=== PATIENT | female | born 1950 | race Caucasian/White ===

== ENCOUNTER 2018-01-23 06:58 | Day surgery (SDC) | payer MEDICARE, BC ==
[2018-01-23] MEDS ORDERED: Propofol 200 MG/20 ML SDV ONE ×2 (07:17→09:29)
[2018-01-23] MEDS ORDERED: fentaNYL 100 MCG/2 ML SDV ONE (07:17)
[2018-01-23] MEDS ORDERED: Midazolam 1 MG/ML 2 ML SDV ONE (07:17)
[2018-01-23] MEDS ORDERED: Lactated Ringers 1,000 ML IV SCH (08:00)
--- NOTE | 2018-01-23 13:13 | OR ---
DATE OF PROCEDURE: 01/23/2018 PREOPERATIVE DIAGNOSIS: Colon cancer screening. POSTOPERATIVE DIAGNOSIS: Small rectal polyp. PROCEDURE PERFORMED: Colonoscopy to the cecum with biopsy resection of small rectal polyp. ANESTHESIA: IV anesthesia with monitored anesthesia care. INDICATION: This 67-year-old white female is referred for her first colonoscopy. I counseled her for the procedure including risks and alternatives, and she gave her informed consent to proceed. DESCRIPTION OF PROCEDURE: The patient was placed in the left lateral decubitus position. IV anesthesia was administered by the Anesthesia Service. Time-out was held. A rectal exam was performed, which was unremarkable. The flexible video Olympus colonoscope was introduced through her anus, up her rectum and out her colon, all way to the cecum. To accomplish this, we had to apply some abdominal compression. Once the cecum was reached, the scope was slowly withdrawn, examining the mucosa throughout. No mucosal abnormalities were noted until we reached the rectum. Here, a small polyp was seen, which was removed with the biopsy forceps. The scope was also retroflexed in the rectum with the distal rectum appearing unremarkable. The scope was straightened and removed. She tolerated the procedure well. Champ Simmons MD /[id number]
== END 2018-01-23 11:10 | disposition home or self-care (01) ==
LOC: JP.SDS 06:58
PROVIDERS: ATTEND Surgery
DX: Z12.11 Encounter for screening for malignant neoplasm of colon (principal); D12.8 Benign neoplasm of rectum; I10 Essential (primary) hypertension; E66.9 Obesity, unspecified; Z68.33 Body mass index [BMI] 33.0-33.9, adult; Z88.2 Allergy status to sulfonamides; Z88.5 Allergy status to narcotic agent; Z88.8 Allergy status to other drugs, medicaments and biological substances; Z91.040 Latex allergy status; Z79.82 Long term (current) use of aspirin; Z79.899 Other long term (current) drug therapy
CPT/HCPCS: 45380; 88305; 88341; 88342; 93005; J2250; J2704; J3010; J7120

== ENCOUNTER 2020-01-08 12:15 | Inpatient (IN) | payer MEDICARE, BC ==
--- NOTE | 2020-01-08 12:23 | EDM.PDOC ---
ED HPI GENERAL MEDICAL PROBLEM - General Chief Complaint: Lower Extremity Injury/Pain Stated Complaint: MEDICAL VIA [facility] Time Seen by Provider: 01/08/20 12:22 Source of Information: Reports: Patient History Limitations: Reports: No Limitations - History of Present Illness INITIAL COMMENTS - FREE TEXT/NARRATIVE: 69 years old female patient presented to the ER with a chief complaint of left lower extremity pain, redness and swelling for the last 4 days. Progressively getting worse. No history of trauma or injury. Denies any fever. Denies any new chest pain or shortness breath. She has not been able to walk or bear any weight in her legs. Denies any cough or fever. Denies any abdominal pain diarrhea or constipation. Denies any urinary symptom. Left Leg Pain Score (Numeric/FACES): 5 - Related Data Allergies Allergy/AdvReac Type Severity Reaction Status Date / Time amlodipine [From Norvasc] Allergy Cannot Verified 01/08/20 12:23 Remember atenolol Allergy Cannot Verified 01/08/20 12:23 Remember Beta-Blockers Allergy Cannot Verified 01/08/20 12:23 (Beta-Adrenergic Bloc Remember candesartan [From Atacand] Allergy Cannot Verified 01/08/20 12:23 Remember clonidine [From Catapres] Allergy Cannot Verified 01/08/20 12:23 Remember codeine Allergy Cannot Verified 01/08/20 12:23 Remember enalapril Allergy Cannot Verified 01/08/20 12:23 Remember indapamide [From Lozol] Allergy Cannot Verified 01/08/20 12:23 Remember latex Allergy Cannot Verified 01/08/20 12:23 Remember lisinopril [From Prinivil] Allergy Cannot Verified 01/08/20 12:23 Remember metoprolol [From Toprol XL] Allergy Cannot Verified 01/08/20 12:23 Remember sulfadimethoxine Allergy Cannot Verified 01/08/20 12:23 Remember morphine AdvReac Vomiting Verified 01/08/20 12:24 Home Meds: Home Meds Losartan [Cozaar] 25 mg PO DAILY 01/22/18 [History] Potassium Chloride 20 meq PO DAILY 01/22/18 [History] aMILoride [Midamor] 5 mg PO DAILY 01/22/18 [History] hydroCHLOROthiazide [Hydrochlorothiazide] 25 mg PO DAILY 01/22/18 [History] Dabigatran Etexilate Mesylate [Pradaxa] 150 mg PO BID 01/08/20 [History] Magnesium Chloride [Slow-Mag] 1 tab PO ASDIRECTED 01/08/20 [History] Spironolactone [Aldactone] 25 mg PO DAILY 01/08/20 [History] dilTIAZem HCL [Dilt-XR] 120 mg PO DAILY 01/08/20 [History] Past Medical History HEENT History: Reports: Allergic Rhinitis, Hard of Hearing, Impaired Vision, Sinusitis Cardiovascular History: Reports: Hypertension Gastrointestinal History: Reports: Cholelithiasis, GERD Genitourinary History: Reports: None [employer]ENT History: Reports: Dysfunctional Uterine Bleeding, , Spontaneous Musculoskeletal History: Reports: Back Pain, Chronic, Fracture, Fibromyalgia, Osteoarthritis Endocrine/Metabolic History: Reports: Obesity/BMI 30+ Dermatologic History: Reports: Psoriasis - Infectious Disease History Infectious Disease History: Reports: Chicken Pox, Measles, Shingles, Other (See Below) Other Infectious Disease History: Erlichiosis - Past Surgical History HEENT Surgical History: Reports: None Cardiovascular Surgical History: Reports: None GI Surgical History: Reports: Cholecystectomy, EGD, Hernia, Abdominal Female Surgical History: Reports: D&C Endocrine Surgical History: Reports: None Musculoskeletal Surgical History: Reports: Other (See Below) Other Musculoskeletal Surgeries/Procedures:: Marcin bunionectomy Dermatological Surgical History: Reports: Skin Biopsy Social & Family History - Caffeine Use Caffeine Use: Reports: Soda Review of Systems - Review of Systems Review Of Systems: Comprehensive ROS is negative, except as noted in HPI. ED EXAM, GENERAL - Physical Exam Exam: See Below Exam Limited By: No Limitations General Appearance: Alert, WD/WN, No Apparent Distress Nose: Normal Inspection, Normal Mucosa, No Blood Head: Atraumatic, Normocephalic Neck: Normal Inspection, Supple, Non-Tender, Full Range of Motion Respiratory/Chest: No Respiratory Distress, Lungs Clear, Normal Breath Sounds, No Accessory Muscle Use, Chest Non-Tender Cardiovascular: Normal Peripheral Pulses, Regular Rate, Rhythm, No Edema, No Gallop, No JVD, No Murmur, No Rub Extremities: Bettye's Sign, Leg Pain, Increased Warmth, Redness, Other (Swelling of the left lower extremity.) Neurological: Alert, Oriented, CN II-XII Intact, Normal Cognition, Normal Gait, Normal Reflexes, No Motor/Sensory Deficits Course - Vital Signs Last Recorded V/S: Last Vital Signs Temp 36.8 C 01/08/20 16:58 Pulse 68 01/08/20 16:58 Resp 18 01/08/20 16:58 BP 165/69 H 01/08/20 16:58 Pulse Ox 97 01/08/20 16:58 - Orders/Labs/Meds Orders: Medication Orders Acetaminophen (Tylenol) 650 mg PO Q4H PRN PRN Reason: Pain (Mild 1-3)/fever Dabigatran (Pradaxa) 150 mg PO BID [facility] Diltiazem HCl (Cardizem Cd) 120 mg PO DAILY [facility] Hydrochlorothiazide (Hydrochlorothiazide) 25 mg PO DAILY [facility] Hydromorphone HCl (Dilaudid) 0.5 mg IVPUSH Q2H PRN PRN Reason: Pain (severe 7-10) Sodium Chloride (Normal Saline) 1,000 mls @ 100 mls/hr IV ASDIRECTED [facility] Potassium Chloride 20 meq/Lidocaine HCl 2 ml/ Sodium Chloride 112 mls @ 56 mls/hr IV ONETIME ONE Stop: 01/08/20 20:59 Last Admin: 01/08/20 18:00 Dose: 56 mls/hr Documented by: LUCRECIA Magnesium Sulfate 2 gm/ Premix 50 mls @ 25 mls/hr IV Q6H [facility] Stop: 01/09/20 07:59 Last Admin: 01/08/20 17:33 Dose: 25 mls/hr Documented by: LUCRECIA Ceftriaxone Sodium 1 gm/ (Sodium Chloride) 50 mls @ 100 mls/hr IV Q12H [facility] Vancomycin HCl 1.25 gm/ Sodium (Chloride) 250 mls @ 150 mls/hr IV Q12H [facility] Last Admin: 01/08/20 18:00 Dose: 150 mls/hr Documented by: LUCRECIA Lactobacillus Rhamnosus (Culturelle) 1 cap PO BID [facility] Lorazepam (Ativan) 0.5 mg IVPUSH Q4H PRN PRN Reason: Nausea/Vomiting Losartan Potassium (Cozaar) 25 mg PO DAILY [facility] Magnesium Hydroxide (Milk Of Magnesia) 30 ml PO Q12H PRN PRN Reason: Constipation Melatonin (Melatonin) 9 mg PO BEDTIME PRN PRN Reason: Sleep Non-Formulary Medication (Amiloride [Midamor]) 5 mg PO DAILY [facility] Ondansetron HCl (Zofran) 4 mg IV Q6H PRN PRN Reason: Nausea/Vomiting Ondansetron HCl (Zofran Odt) 4 mg PO Q6H PRN PRN Reason: Nausea able to take PO Oxycodone HCl (Oxycodone) 5 - 10 mg PO Q4H PRN PRN Reason: Pain Senna/Docusate Sodium (Senna Plus) 1 tab PO BID PRN PRN Reason: Constipation Spironolactone (Aldactone) 25 mg PO DAILY [facility] Labs: Laboratory Tests 01/08/20 01/08/20 01/08/20 Range/Units 12:41 12:41 12:41 WBC 15.4 H (4.5-11.0) K/uL RBC 4.54 (3.30-5.50) M/uL Hgb 15.0 (12.0-15.0) g/dL Hct 43.9 (36.0-48.0) % MCV 97 (80-98) fL MCH 33 H (27-31) pg MCHC 34 (32-36) % Plt Count 173 (150-400) K/uL Neut % (Auto) 85 H (36-66) % Lymph % (Auto) 4 L (24-44) % [place] % (Auto) 11 H (2-6) % Eos % (Auto) 0 L (2-4) % Baso % (Auto) 0 (0-1) % Sodium 127 L (140-148) mmol/L Potassium 2.6 L* (3.6-5.2) mmol/L Chloride 88 L (100-108) mmol/L Carbon Dioxide 34 H (21-32) mmol/L Anion Gap 7.6 (5.0-14.0) mmol/L BUN 15 (7-18) mg/dL Creatinine 0.9 (0.6-1.0) mg/dL Est Cr Clr Drug Dosing 53.83 mL/min Estimated GFR (MDRD) > 60 (>60) Glucose 113 H (74-106) mg/dL Lactic Acid 1.8 (0.4-2.0) mmol/L Calcium 9.0 (8.5-10.1) mg/dL Magnesium (1.8-2.4) mg/dL Total Bilirubin 3.2 H (0.2-1.0) mg/dL AST 44 H (15-37) U/L ALT 29 (12-78) U/L Alkaline Phosphatase 65 (46-116) U/L C-Reactive Protein 22.13 H (0.0-0.3) mg/dL Total Protein 7.4 (6.4-8.2) g/dL Albumin 3.0 L (3.4-5.0) g/dL Globulin 4.4 H (2.3-3.5) g/dL Albumin/Globulin Ratio 0.7 L (1.2-2.2) 01/08/20 Range/Units 13:36 WBC (4.5-11.0) K/uL RBC (3.30-5.50) M/uL Hgb (12.0-15.0) g/dL Hct (36.0-48.0) % MCV (80-98) fL MCH (27-31) pg MCHC (32-36) % Plt Count (150-400) K/uL Neut % (Auto) (36-66) % Lymph % (Auto) (24-44) % [place] % (Auto) (2-6) % Eos % (Auto) (2-4) % Baso % (Auto) (0-1) % Sodium (140-148) mmol/L Potassium (3.6-5.2) mmol/L Chloride (100-108) mmol/L Carbon Dioxide (21-32) mmol/L Anion Gap (5.0-14.0) mmol/L BUN (7-18) mg/dL Creatinine (0.6-1.0) mg/dL Est Cr Clr Drug Dosing mL/min Estimated GFR (MDRD) (>60) Glucose (74-106) mg/dL Lactic Acid (0.4-2.0) mmol/L Calcium (8.5-10.1) mg/dL Magnesium 1.5 L (1.8-2.4) mg/dL Total Bilirubin (0.2-1.0) mg/dL AST (15-37) U/L ALT (12-78) U/L Alkaline Phosphatase (46-116) U/L C-Reactive Protein (0.0-0.3) mg/dL Total Protein (6.4-8.2) g/dL Albumin (3.4-5.0) g/dL Globulin (2.3-3.5) g/dL Albumin/Globulin Ratio (1.2-2.2) Meds: Medications Generic Name Dose Route Start Last Admin Trade Name Freq PRN Reason Stop Dose Admin Acetaminophen 650 mg 01/08/20 16:28 Tylenol PO Q4H PRN Pain (Mild 1-3)/fever Dabigatran 150 mg 01/08/20 21:00 Pradaxa PO BID [facility] Diltiazem HCl 120 mg 01/09/20 09:00 Cardizem Cd PO DAILY [facility] Hydrochlorothiazide 25 mg 01/09/20 09:00 Hydrochlorothiazide PO DAILY [facility] Hydromorphone HCl 0.5 mg 01/08/20 16:28 Dilaudid IVPUSH Q2H PRN Pain (severe 7-10) Sodium Chloride 1,000 mls @ 100 mls/hr 01/08/20 16:28 Normal Saline IV ASDIRECTED [facility] Potassium Chloride 20 meq/ 112 mls @ 56 mls/hr 01/08/20 19:00 01/08/20 18:00 Lidocaine HCl 2 ml/ Sodium IV 01/08/20 20:59 56 mls/hr Chloride ONETIME ONE Administration Magnesium Sulfate 2 gm/ Premix 50 mls @ 25 mls/hr 01/08/20 18:00 01/08/20 17:33 IV 01/09/20 07:59 25 mls/hr Q6H [facility] Administration Ceftriaxone Sodium 1 gm/ 50 mls @ 100 mls/hr 01/09/20 02:00 Sodium Chloride IV Q12H [facility] Vancomycin HCl 1.25 gm/ Sodium 250 mls @ 150 mls/hr 01/08/20 18:00 01/08/20 18:00 Chloride IV 150 mls/hr Q12H [facility] Administration Lactobacillus Rhamnosus 1 cap 01/08/20 21:00 Culturelle PO BID [facility] Lorazepam 0.5 mg 01/08/20 16:28 Ativan IVPUSH Q4H PRN Nausea/Vomiting Losartan Potassium 25 mg 01/09/20 09:00 Cozaar PO DAILY [facility] Magnesium Hydroxide 30 ml 01/08/20 16:28 Milk Of Magnesia PO Q12H PRN Constipation Melatonin 9 mg 01/08/20 16:28 Melatonin PO BEDTIME PRN Sleep Non-Formulary Medication 5 mg 01/09/20 09:00 Amiloride [Midamor] PO DAILY [facility] Ondansetron HCl 4 mg 01/08/20 16:28 Zofran IV Q6H PRN Nausea/Vomiting Ondansetron HCl 4 mg 01/08/20 16:28 Zofran Odt PO Q6H PRN Nausea able to take PO Oxycodone HCl 5 - 10 mg 01/08/20 16:28 Oxycodone PO Q4H PRN Pain Senna/Docusate Sodium 1 tab 01/08/20 16:28 Senna Plus PO BID PRN Constipation Spironolactone 25 mg 01/09/20 09:00 Aldactone PO DAILY [facility] Discontinued Medications Generic Name Dose Route Start Last Admin Trade Name Freq PRN Reason Stop Dose Admin Ceftriaxone Sodium 1 gm/ 50 mls @ 100 mls/hr 01/08/20 13:30 01/08/20 13:53 Sodium Chloride IV 01/08/20 13:59 100 mls/hr ONETIME ONE Administration Potassium Chloride 20 meq/ 112 mls @ 56 mls/hr 01/08/20 14:30 01/08/20 14:46 Lidocaine HCl 2 ml/ Sodium IV 01/08/20 16:29 56 mls/hr Chloride ONETIME ONE Administration Potassium Chloride 40 meq 01/08/20 17:45 01/08/20 17:33 Klor-Con M20 PO 01/08/20 17:46 40 meq ONETIME ONE Administration - Radiology Interpretation Free Text/Narrative:: Patient was seen and examined shortly after arrival. Stable. Lab and imaging reviewed. Ultrasound negative for DVT. Started on Rocephin for cellulitis. Potassium 2.6. Given 10 mEq potassium chloride. Case was discussed with hospitalist commercial drone pilot Dr. Kent and he accepted admission for further management. Patient agrees with the plan. Stable for admission. mag is pending Departure - Departure Time of Disposition: 13:31 Disposition: Admitted As Inpatient 67 Condition: Fair Clinical Impression: Cellulitis, Hypokalemia - Discharge Information Sepsis Event Note (ED) - Focused Exam Vital Signs: Vital Signs Temp Pulse Resp BP Pulse Ox 01/08/20 15:44 75 162/88 H 93 L 01/08/20 14:45 65 16 159/74 H 94 L 01/08/20 12:19 36.8 C 81 13 182/76 H 96 01/08/20 12:16 36.8 C 81 13 182/76 H 96
[2020-01-08] MEDS ORDERED: cefTRIAXone 1 GM in Sodium Chloride 0.9% 50 ML IV ONE (13:30)
--- NOTE | 2020-01-08 14:05 | US ---
VL Duplex Lwr Ext Veins Ltd Lt INDICATION: pain, and swelling FINDINGS: Ultrasound examination of the lower extremity using Doppler and compressive technique demonstrates that the common femoral, femoral, and popliteal veins are patent, and negative for thrombus. The calf veins were less than well visualized due to tissue edema. Comparison was limited due to patient pain IMPRESSION: No definite evidence of DVT. Calf vein evaluation is limited due to patient pain and soft tissue edema
[2020-01-08] MEDS ORDERED: Potassium Chloride 20 MEQ, Lidocaine 1% 2 ML in Sodium Chloride 0.9% 100 ML IV ONE ×2 (14:30→19:00)
--- NOTE | 2020-01-08 16:03 | PCM.HP.2 ---
H&P History of Present Illness - General Date of Service: 01/08/20 Admit Problem/Dx: Admission Diagnosis/Problem Admission Diagnosis/Problem Cellulitis of left lower extremity Source of Information: Patient, Family, Provider History Limitations: Reports: No Limitations - History of Present Illness Initial Comments - Free Text/Narative: CC: It hurt too bad to stand on my leg HPI: Mercy presented to the emergency room today with progressive redness, pain and swelling of her left lower extremity. Symptoms have progressed over the past several days. She describes at rest moderate achy pain from the knee distally including her foot. The pain does not radiate. The pain does wax and wane but anytime she tries to stand on the left foot/leg she has severe sharp shooting pains from her foot all the way up to the knee. She has not taken anything to make the pain feel better but rest does help the pain some. Pain has steadily been getting worse over the past several days. She has also noticed increased swelling especially over the past 2 days along with redness an d warmth that have steadily progressed over the past 2 days as well. She is not aware of any injury to her leg but does have several scabbed over lesions. She has no history of cellulitis of either leg. She has not had fevers or chills. She has had significant weakness as well as some episodes of shaking which are very short-lived. She has been too weak to get out of bed. Appetite has been v sara poor and she has had very little to eat or drink in the last 4 or 5 days. She has no energy. She does not feel short of breath and has not had a cough. No abdominal pain or change in bowel or bladder habits. No travel or sick contacts. Work-up in the emergency room raised concern for cellulitis involving the foot and entire left leg below the knee. She has mild leukocytosis but no fever. She also has hyponatremia, hypokalemia and mild hypomagnesemia. She is too weak to bear any weight. With the fairly rapid progression of symptoms and multiple electrolyte abnormalities she is going to be admitted for antibiotics and electrolyte replacement. Left Leg Pain Score (Numeric/FACES): 5 - Related Data Allergies/Adverse Reactions: Allergies Allergy/AdvReac Type Severity Reaction Status Date / Time amlodipine [From [facility]] Allergy Cannot Verified 01/08/20 12:23 Remember atenolol Allergy Cannot Verified 01/08/20 12:23 Remember Beta-Blockers Allergy Cannot Verified 01/08/20 12:23 (Beta-Adrenergic Bloc Remember candesartan [From [facility]] Allergy Cannot Verified 01/08/20 12:23 Remember clonidine [From [facility]ap[facility]] Allergy Cannot Verified 01/08/20 12:23 Remember codeine Allergy Cannot Verified 01/08/20 12:23 Remember enalapril Allergy Cannot Verified 01/08/20 12:23 Remember indapamide [From Lozol] Allergy Cannot Verified 01/08/20 12:23 Remember latex Allergy Cannot Verified 01/08/20 12:23 Remember lisinopril [From Prinivil] Allergy Cannot Verified 01/08/20 12:23 Remember metoprolol [From Toprol XL] Allergy Cannot Verified 01/08/20 12:23 Remember sulfadimethoxine Allergy Cannot Verified 01/08/20 12:23 Remember morphine AdvReac Vomiting Verified 01/08/20 12:24 Home Medications: Home Meds Losartan [Cozaar] 25 mg PO DAILY 01/22/18 [History] Potassium Chloride 20 meq PO DAILY 01/22/18 [History] aMILoride [Midamor] 5 mg PO DAILY 01/22/18 [History] hydroCHLOROthiazide [Hydrochlorothiazide] 25 mg PO DAILY 01/22/18 [History] Dabigatran Etexilate Mesylate [Pradaxa] 150 mg PO BID 01/08/20 [History] Magnesium Chloride [Slow-Mag] 1 tab PO ASDIRECTED 01/08/20 [History] Spironolactone [Aldactone] 25 mg PO DAILY 01/08/20 [History] dilTIAZem HCL [Dilt-XR] 120 mg PO DAILY 01/08/20 [History] Past Medical History HEENT History: Reports: Allergic Rhinitis, Hard of Hearing, Impaired Vision, Sinusitis Cardiovascular History: Reports: Hypertension Gastrointestinal History: Reports: Cholelithiasis, GERD Genitourinary History: Reports: None 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: Dysfunctional Uterine Bleeding, , Spontaneous Musculoskeletal History: Reports: Back Pain, Chronic, Fracture, Fibromyalgia, Osteoarthritis Endocrine/Metabolic History: Reports: Obesity/BMI 30+ Dermatologic History: Reports: Psoriasis - Infectious Disease History Infectious Disease History: Reports: Chicken Pox, Measles, Shingles, Other (See Below) Other Infectious Disease History: Erlichiosis - Past Surgical History HEENT Surgical History: Reports: None Cardiovascular Surgical History: Reports: None GI Surgical History: Reports: Cholecystectomy, EGD, Hernia, Abdominal Female Surgical History: Reports: D&C Endocrine Surgical History: Reports: None Musculoskeletal Surgical History: Reports: Other (See Below) Other Musculoskeletal Surgeries/Procedures:: Marcin bunionectomy Dermatological Surgical History: Reports: Skin Biopsy Social & Family History - Family History Cardiac: Denies: CAD - Tobacco Use Smoking Status *Q: Never Smoker - Caffeine Use Caffeine Use: Reports: Soda - Alcohol Use Days Per Week of Alcohol Use: 4 Number of Drinks Per Day: 2 Total Drinks Per Week: 8 - Recreational Drug Use Recreational Drug Use: No H&P Review of Systems - Review of Systems: Review Of Systems: See Below Free Text/Narrative: A complete 12 point review of systems was obtained. Pertinent positives and negatives are noted in the history of present illness. All other systems were reviewed and were negative except as noted. Exam - Exam Exam: See Below - Vital Signs Vital Signs: Last Vital Signs Temp 36.8 C 01/08/20 12:19 Pulse 75 01/08/20 15:44 Resp 16 01/08/20 14:45 BP 162/88 H 01/08/20 15:44 Pulse Ox 93 L 01/08/20 15:44 Weight: 82.554 kg - Exam Quality Assessment: No: Supplemental Oxygen General: Alert, Oriented, Cooperative. No: Mild Distress HEENT: Conjunctiva Clear. No: Mucosa Moist & [place] (Dry), Scleral Icterus Neck: Supple, Trachea Midline Lungs: Clear to Auscultation, Normal Respiratory Effort Cardiovascular: Regular Rate, Regular Rhythm GI/Abdominal Exam: Normal Bowel Sounds, Soft, Non-Tender, No Distention Back Exam: Normal Inspection, Full Range of Motion Extremities: Pedal Edema (Left leg from the knee distally including the foot), Increased Warmth (Left leg from the knee distally including the foot). No: Joint Swelling Skin: Warm, Dry, Rash (Erythema involving the lateral, anterior and medial aspect of the lower leg from the knee to the ankle and this extends onto the foot), Wound (2 very small scabbed lesions left anterior lower leg and left lateral lower leg. She has some healing scabbed lesions at the base of the foot near the anterior lower leg that she says are from wearing sandals. No drainage) Neuro Extensive - Mental Status: Alert, Oriented x3, Nl Response to Commands Neuro Extensive - Motor, Sensory, Reflexes: No: Dysarthria, Abnormal Motor Psychiatric: Alert, Normal Affect - Patient Data Lab Results Last 24 hrs: Laboratory Results - last 24 hr 01/08/20 01/08/20 01/08/20 Range/Units 12:41 12:41 12:41 WBC 15.4 H (4.5-11.0) K/uL RBC 4.54 (3.30-5.50) M/uL Hgb 15.0 (12.0-15.0) g/dL Hct 43.9 (36.0-48.0) % MCV 97 (80-98) fL MCH 33 H (27-31) pg MCHC 34 (32-36) % Plt Count 173 (150-400) K/uL Neut % (Auto) 85 H (36-66) % Lymph % (Auto) 4 L (24-44) % Green % (Auto) 11 H (2-6) % Eos % (Auto) 0 L (2-4) % Baso % (Auto) 0 (0-1) % Sodium 127 L (140-148) mmol/L Potassium 2.6 L* (3.6-5.2) mmol/L Chloride 88 L (100-108) mmol/L Carbon Dioxide 34 H (21-32) mmol/L Anion Gap 7.6 (5.0-14.0) mmol/L BUN 15 (7-18) mg/dL Creatinine 0.9 (0.6-1.0) mg/dL Est Cr Clr Drug Dosing 53.83 mL/min Estimated GFR (MDRD) > 60 (>60) Glucose 113 H (74-106) mg/dL Lactic Acid 1.8 (0.4-2.0) mmol/L Calcium 9.0 (8.5-10.1) mg/dL Magnesium (1.8-2.4) mg/dL Total Bilirubin 3.2 H (0.2-1.0) mg/dL AST 44 H (15-37) U/L ALT 29 (12-78) U/L Alkaline Phosphatase 65 (46-116) U/L C-Reactive Protein 22.13 H (0.0-0.3) mg/dL Total Protein 7.4 (6.4-8.2) g/dL Albumin 3.0 L (3.4-5.0) g/dL Globulin 4.4 H (2.3-3.5) g/dL Albumin/Globulin Ratio 0.7 L (1.2-2.2) 01/08/20 Range/Units 13:36 WBC (4.5-11.0) K/uL RBC (3.30-5.50) M/uL Hgb (12.0-15.0) g/dL Hct (36.0-48.0) % MCV (80-98) fL MCH (27-31) pg MCHC (32-36) % Plt Count (150-400) K/uL Neut % (Auto) (36-66) % Lymph % (Auto) (24-44) % Green % (Auto) (2-6) % Eos % (Auto) (2-4) % Baso % (Auto) (0-1) % Sodium (140-148) mmol/L Potassium (3.6-5.2) mmol/L Chloride (100-108) mmol/L Carbon Dioxide (21-32) mmol/L Anion Gap (5.0-14.0) mmol/L BUN (7-18) mg/dL Creatinine (0.6-1.0) mg/dL Est Cr Clr Drug Dosing mL/min Estimated GFR (MDRD) (>60) Glucose (74-106) mg/dL Lactic Acid (0.4-2.0) mmol/L Calcium (8.5-10.1) mg/dL Magnesium 1.5 L (1.8-2.4) mg/dL Total Bilirubin (0.2-1.0) mg/dL AST (15-37) U/L ALT (12-78) U/L Alkaline Phosphatase (46-116) U/L C-Reactive Protein (0.0-0.3) mg/dL Total Protein (6.4-8.2) g/dL Albumin (3.4-5.0) g/dL Globulin (2.3-3.5) g/dL Albumin/Globulin Ratio (1.2-2.2) Result Diagrams: 01/08/20 12:41 01/08/20 12:41 Imaging Impressions Last 24 hrs: Lower extremity venous ultrasound of the left leg-I did review these images personally-no evidence for deep vein thrombosis. There is significant soft tissue swelling of the left lower leg. Sepsis Event Note - Evaluation Sepsis Screening Result: No Definite Risk - Focused Exam Vital Signs: Vital Signs Temp Pulse Resp BP Pulse Ox 01/08/20 15:44 75 162/88 H 93 L 01/08/20 14:45 65 16 159/74 H 94 L 01/08/20 12:19 36.8 C 81 13 182/76 H 96 01/08/20 12:16 36.8 C 81 13 182/76 H 96 *Q Meaningful Use (ADM) - VTE Risk Assess *Q Each Risk Factor Represents 1 Point: Obesity ( BMI > 25 kg/m2) Total Score 1 Point Risk Factors: 1 Each Risk Factor Represents 2 Points: Age 60 - 74 Years Total Score 2 Point Risk Factors: 2 Each Risk Factor Represents 3 Points: None Total Score 3 Point Risk Factors: 0 Each Risk Factor Represents 5 Points: None Total Score 5 Point Risk Factors: 0 Venous Thromboembolism Risk Factor Score *Q: 3 - Problem List (1) Cellulitis of left lower extremity SNOMED Code(s): 069473843 ICD Code: L03.116 - CELLULITIS OF LEFT LOWER LIMB Status: Acute Current Visit: Yes (2) Hypokalemia SNOMED Code(s): 03337777 ICD Code: E87.6 - HYPOKALEMIA Status: Acute Current Visit: Yes (3) Hyponatremia SNOMED Code(s): 17906010 ICD Code: E87.1 - HYPO-OSMOLALITY AND HYPONATREMIA Status: Acute Current Visit: Yes (4) Hypomagnesemia SNOMED Code(s): 819645513 ICD Code: E83.42 - HYPOMAGNESEMIA Status: Acute Current Visit: Yes (5) Essential hypertension SNOMED Code(s): 93751906 ICD Code: I10 - ESSENTIAL (PRIMARY) HYPERTENSION Status: Chronic Current Visit: Yes Problem List Initiated/Reviewed/Updated: Yes Orders Last 24hrs: Active Orders 24 hr Category Date Time Status Patient Status Manage Transfer [TRANSFER] Routine ADT 01/08/20 15:54 Ordered Potassium Chloride 20 meq Med 01/08/20 14:30 Active Lidocaine 1% [Xylocaine 1%] 2 ml Sodium Chloride 0.9% [Normal Saline] 100 ml IV ONETIME Resuscitation Status Routine Resus Stat 01/08/20 15:56 Ordered Medication Orders Potassium Chloride 20 meq/Lidocaine HCl 2 ml/ Sodium Chloride 112 mls @ 56 mls/hr IV ONETIME ONE Stop: 01/08/20 16:29 Last Admin: 01/08/20 14:46 Dose: 56 mls/hr Documented by: KRISTA Assessment/Plan Comment:: ASSESSMENT AND PLAN - Cellulitis of the left lower extremity including foot-no strong evidence for se psis. Significant swelling and pain of the left lower leg making it extremely difficult to bear weight. She has significant weakness and could not get out of bed on her own. No strong evidence for sepsis. Cultures have been obtained and she did receive ceftriaxone in the emergency room. I suspect the portal of entry where the wounds on the lower leg. No evidence for abscess at this time. CRP is quite elevated at more than 22. -Antibiotic coverage with ceftriaxone and vancomycin -IV fluids -Symptomatic management of pain -Follow-up cultures -Physical therapy to help with weakness starting tomorrow Profound hypokalemia-potassium level was only 2.6. She did receive a small quantity of supplementation in the emergency room. I suspect this is related to losses from her medications as well as her recent decrease in her supplement along with not eating for several days. -20 mEq IV over 2 hours -40 mEq by mouth x1 -Recheck in the morning Hyponatremia-secondary to hypovolemia with poor intake recently. -IV fluids Hypomagnesemia-plan to supplement along with the potassium. Paroxysmal atrial fibrillation-currently in sinus rhythm. She is chronically anticoagulated. -Continue dabigatran Essential hypertension-blood pressure initially mildly elevated but acceptable at this time. Planning to continue her usual home medications. Maintenance issues - - DVT prophylaxis -dabigatran - GI prophylaxis -not indicated - Nutrition -regular - Hardy catheter -not indicated CODE STATUS -full code Admission justification -this patient will be admitted for inpatient services and is medically appropriate meeting medical necessity for inpatient admission as outlined in my documentation. I reasonably expect the patient will require inpatient services that span a period time over 2 midnights. I reasonably expect this patient to be discharged or transferred within 96 hours [facility]. Disposition -I would anticipate discharge home after the hospital stay Primary care physician -Dr. Mei Kent M.D. - Mortality Measure Prognosis:: Good
[2020-01-08] MEDS ORDERED: Ondansetron 4 MG/2 ML SDV IV PRN (16:28)
[2020-01-08] MEDS ORDERED: Melatonin 3 MG Tab PO PRN (16:28)
[2020-01-08] MEDS ORDERED: Ondansetron 4 MG Tab.DIS PO PRN (16:28)
[2020-01-08] MEDS ORDERED: oxyCODONE 5 MG Tab PO PRN (16:28)
[2020-01-08] MEDS ORDERED: Magnesium Hydroxide 400 MG/5 ML Susp 30 ML Cup PO PRN (16:28)
[2020-01-08] MEDS ORDERED: HYDROmorphone 1 MG/ML Syringe IVPUSH PRN (16:28)
[2020-01-08] MEDS ORDERED: LORazepam 2 MG/ML SDV IVPUSH PRN (16:28)
[2020-01-08] MEDS ORDERED: Acetaminophen 325 MG Tab PO PRN (16:28)
[2020-01-08] MEDS ORDERED: Sodium Chloride 0.9% 1,000 ML IV SCH (16:28)
[2020-01-08] MEDS: Magnesium Sulfate/Water 2 GM in Premix Bag 1 BAG IV SCH ×2 (17:33→23:47)
[2020-01-08] MEDS ORDERED: Potassium Chloride 20 MEQ Tab.ER PO ONE (17:45)
[2020-01-08] MEDS: Lactobacillus Rhamnosus GG (Probiotic) Cap PO SCH (20:41)
[2020-01-09] MEDS: cefTRIAXone 1 GM in Sodium Chloride 0.9% 50 ML IV SCH ×2 (01:54→13:22)
[2020-01-09] MEDS ORDERED: Potassium Chloride 20 MEQ in Premix Bag 1 BAG IV ONE (05:29)
[2020-01-09] MEDS: Magnesium Sulfate/Water 2 GM in Premix Bag 1 BAG IV SCH (05:37)
[2020-01-09] MEDS ORDERED: Potassium Chloride 100 ML ONE (05:42)
[2020-01-09] MEDS: Diltiazem 120 MG Cap.CD PO SCH (08:24)
[2020-01-09] MEDS: Lactobacillus Rhamnosus GG (Probiotic) Cap PO SCH ×2 (08:24→20:21)
[2020-01-09] MEDS: Hydrochlorothiazide 25 MG Tab PO SCH (08:24)
[2020-01-09] MEDS: Losartan 25 MG Tab PO SCH (08:24)
[2020-01-09] MEDS: Spironolactone 25 MG Tab PO SCH (08:24)
[2020-01-09] MEDS ORDERED: Potassium Chloride 20 MEQ Tab.ER PO ONE ×2 (09:00→18:40)
[2020-01-09] MEDS: aMILoride 5 MG Tab PO SCH (09:51)
--- NOTE | 2020-01-09 10:24 | PCM.PN ---
- General Info Date of Service: 01/09/20 Subjective Update: No acute events overnight. Pain is a little better today but still moderate to moderately severe. Pain is still worse when she tries to bear any weight but fairly comfortable at rest. Redness and swelling are slightly better today. White blood cell count has improved. No fevers overnight. Appetite has improved. Cultures are negative so far. Functional Status: Reports: Pain Controlled, Tolerating Diet - Review of Systems General: Denies: Fever Musculoskeletal: Reports: Leg Pain - Patient Data Vitals - Most Recent: Last Vital Signs Temp 36.6 C 01/09/20 08:00 Pulse 65 01/09/20 08:24 Resp 19 01/09/20 08:00 BP 173/74 H 01/09/20 08:24 Pulse Ox 97 01/09/20 08:00 Weight - Most Recent: 82.554 kg I&O - Last 24 Hours: Intake & Output 01/08/20 01/09/20 01/09/20 22:59 06:59 14:59 Intake Total 2269 Output Total 300 400 Balance -300 2269 -400 Lab Results Last 24 Hours: Laboratory Results - last 24 hr 01/08/20 01/08/20 01/08/20 Range/Units 12:41 12:41 12:41 WBC 15.4 H (4.5-11.0) K/uL RBC 4.54 (3.30-5.50) M/uL Hgb 15.0 (12.0-15.0) g/dL Hct 43.9 (36.0-48.0) % MCV 97 (80-98) fL MCH 33 H (27-31) pg MCHC 34 (32-36) % Plt Count 173 (150-400) K/uL Neut % (Auto) 85 H (36-66) % Lymph % (Auto) 4 L (24-44) % [place] % (Auto) 11 H (2-6) % Eos % (Auto) 0 L (2-4) % Baso % (Auto) 0 (0-1) % Sodium 127 L (140-148) mmol/L Potassium 2.6 L* (3.6-5.2) mmol/L Chloride 88 L (100-108) mmol/L Carbon Dioxide 34 H (21-32) mmol/L Anion Gap 7.6 (5.0-14.0) mmol/L BUN 15 (7-18) mg/dL Creatinine 0.9 (0.6-1.0) mg/dL Est Cr Clr Drug Dosing 53.83 mL/min Estimated GFR (MDRD) > 60 (>60) Glucose 113 H (74-106) mg/dL Lactic Acid 1.8 (0.4-2.0) mmol/L Calcium 9.0 (8.5-10.1) mg/dL Magnesium (1.8-2.4) mg/dL Total Bilirubin 3.2 H (0.2-1.0) mg/dL AST 44 H (15-37) U/L ALT 29 (12-78) U/L Alkaline Phosphatase 65 (46-116) U/L C-Reactive Protein 22.13 H (0.0-0.3) mg/dL Total Protein 7.4 (6.4-8.2) g/dL Albumin 3.0 L (3.4-5.0) g/dL Globulin 4.4 H (2.3-3.5) g/dL Albumin/Globulin Ratio 0.7 L (1.2-2.2) 01/08/20 01/09/20 01/09/20 Range/Units 13:36 05:02 05:02 WBC 13.0 H (4.5-11.0) K/uL RBC 3.97 (3.30-5.50) M/uL Hgb 13.2 (12.0-15.0) g/dL Hct 39.1 (36.0-48.0) % MCV 99 H (80-98) fL MCH 33 H (27-31) pg MCHC 34 (32-36) % Plt Count 180 (150-400) K/uL Neut % (Auto) (36-66) % Lymph % (Auto) (24-44) % [place] % (Auto) (2-6) % Eos % (Auto) (2-4) % Baso % (Auto) (0-1) % Sodium 128 L (140-148) mmol/L Potassium 2.9 L* (3.6-5.2) mmol/L Chloride 92 L (100-108) mmol/L Carbon Dioxide 30 (21-32) mmol/L Anion Gap 8.9 (5.0-14.0) mmol/L BUN 13 (7-18) mg/dL Creatinine 0.7 (0.6-1.0) mg/dL Est Cr Clr Drug Dosing 69.21 mL/min Estimated GFR (MDRD) > 60 (>60) Glucose 97 (74-106) mg/dL Lactic Acid (0.4-2.0) mmol/L Calcium 8.3 L (8.5-10.1) mg/dL Magnesium 1.5 L (1.8-2.4) mg/dL Total Bilirubin (0.2-1.0) mg/dL AST (15-37) U/L ALT (12-78) U/L Alkaline Phosphatase (46-116) U/L C-Reactive Protein (0.0-0.3) mg/dL Total Protein (6.4-8.2) g/dL Albumin (3.4-5.0) g/dL Globulin (2.3-3.5) g/dL Albumin/Globulin Ratio (1.2-2.2) Med Orders - Current: Current Medications Acetaminophen (Tylenol) 650 mg PO Q4H PRN PRN Reason: Pain (Mild 1-3)/fever Amiloride HCl (Midamor) 5 mg PO DAILY [facility] Last Admin: 01/09/20 09:51 Dose: 5 mg Documented by: Dabigatran (Pradaxa) 150 mg PO BID [facility] Last Admin: 01/09/20 08:23 Dose: 150 mg Documented by: Diltiazem HCl (Cardizem Cd) 120 mg PO DAILY [facility] Last Admin: 01/09/20 08:24 Dose: 120 mg Documented by: Hydrochlorothiazide (Hydrochlorothiazide) 25 mg PO DAILY [facility] Last Admin: 01/09/20 08:24 Dose: 25 mg Documented by: Hydromorphone HCl (Dilaudid) 0.5 mg IVPUSH Q2H PRN PRN Reason: Pain (severe 7-10) Sodium Chloride (Normal Saline) 1,000 mls @ 100 mls/hr IV ASDIRECTED [facility] Last Admin: 01/09/20 04:03 Dose: 100 mls/hr Documented by: Ceftriaxone Sodium 1 gm/ (Sodium Chloride) 50 mls @ 100 mls/hr IV Q12H [facility] Last Admin: 01/09/20 01:54 Dose: 100 mls/hr Documented by: Vancomycin HCl 1.25 gm/ Sodium (Chloride) 250 mls @ 150 mls/hr IV Q12H [facility] Last Admin: 01/09/20 05:37 Dose: 150 mls/hr Documented by: Lactobacillus Rhamnosus (Culturelle) 1 cap PO BID [facility] Last Admin: 01/09/20 08:24 Dose: 1 cap Documented by: Lorazepam (Ativan) 0.5 mg IVPUSH Q4H PRN PRN Reason: Nausea/Vomiting Losartan Potassium (Cozaar) 25 mg PO DAILY [facility] Last Admin: 01/09/20 08:24 Dose: 25 mg Documented by: Magnesium Hydroxide (Milk Of Magnesia) 30 ml PO Q12H PRN PRN Reason: Constipation Melatonin (Melatonin) 9 mg PO BEDTIME PRN PRN Reason: Sleep Ondansetron HCl (Zofran) 4 mg IV Q6H PRN PRN Reason: Nausea/Vomiting Ondansetron HCl (Zofran Odt) 4 mg PO Q6H PRN PRN Reason: Nausea able to take PO Oxycodone HCl (Oxycodone) 5 - 10 mg PO Q4H PRN PRN Reason: Pain Senna/Docusate Sodium (Senna Plus) 1 tab PO BID PRN PRN Reason: Constipation Spironolactone (Aldactone) 25 mg PO DAILY [facility] Last Admin: 01/09/20 08:24 Dose: 25 mg Documented by: Discontinued Medications Ceftriaxone Sodium 1 gm/ (Sodium Chloride) 50 mls @ 100 mls/hr IV ONETIME ONE Stop: 01/08/20 13:59 Last Admin: 01/08/20 13:53 Dose: 100 mls/hr Documented by: Potassium Chloride 20 meq/Lidocaine HCl 2 ml/ Sodium Chloride 112 mls @ 56 mls/hr IV ONETIME ONE Stop: 01/08/20 16:29 Last Admin: 01/08/20 14:46 Dose: 56 mls/hr Documented by: Potassium Chloride 20 meq/Lidocaine HCl 2 ml/ Sodium Chloride 112 mls @ 56 mls/hr IV ONETIME ONE Stop: 01/08/20 20:59 Last Admin: 01/08/20 18:00 Dose: 56 mls/hr Documented by: Magnesium Sulfate 2 gm/ Premix 50 mls @ 25 mls/hr IV Q6H [facility] Stop: 01/09/20 07:59 Last Admin: 01/09/20 05:37 Dose: 25 mls/hr Documented by: Potassium Chloride 20 meq/ (Premix) 100 mls @ 50 mls/hr IV ONETIME ONE Stop: 01/09/20 07:28 Last Admin: 01/09/20 05:49 Dose: 50 mls/hr Documented by: Potassium Chloride (Kcl 20 Meq In Water 100 Ml) Confirm Administered Dose 100 mls @ as directed .ROUTE .STK-MED ONE Stop: 01/09/20 05:43 Last Admin: 01/09/20 05:49 Dose: Not Given Documented by: Lidocaine HCl (Xylocaine-Mpf 1%) 2 ml INJECT ONETIME ONE Stop: 01/09/20 05:31 Last Admin: 01/09/20 05:49 Dose: 2 ml Documented by: Lidocaine HCl (Xylocaine-Mpf 1%) Confirm Administered Dose 5 ml .ROUTE .STK-MED ONE Stop: 01/09/20 05:43 Last Admin: 01/09/20 05:49 Dose: Not Given Documented by: Potassium Chloride (Klor-Con M20) 40 meq PO ONETIME ONE Stop: 01/08/20 17:46 Last Admin: 01/08/20 17:33 Dose: 40 meq Documented by: Potassium Chloride (Klor-Con M20) 40 meq PO ONETIME ONE Stop: 01/09/20 09:01 Last Admin: 01/09/20 09:50 Dose: 40 meq Documented by: - Exam Quality Assessment: No: Supplemental Oxygen General: Alert, Oriented, Cooperative, No Acute Distress Lungs: Normal Respiratory Effort Cardiovascular: Regular Rate, Regular Rhythm GI/Abdominal Exam: Soft, No Distention Extremities: Pedal Edema, Increased Warmth (left lower leg from knee to ankle) Skin: Warm, Dry, Rash (erythema from left knee to ankle, circumferential ) Psy/Mental Status: Alert, Normal Affect Sepsis Event Note - Evaluation Sepsis Screening Result: No Definite Risk - Focused Exam Vital Signs: Vital Signs Temp Pulse Pulse Resp BP BP Pulse Ox 01/09/20 08:24 65 173/74 H 01/09/20 08:00 36.6 C 61 19 173/74 H 97 01/09/20 04:00 37.0 C 60 16 161/78 H 94 L 01/08/20 23:49 36.7 C 67 12 163/70 H 97 - Problem List & Annotations (1) Cellulitis of left lower extremity SNOMED Code(s): 409812941 Code(s): L03.116 - CELLULITIS OF LEFT LOWER LIMB Status: Acute Current Visit: Yes (2) Hypokalemia SNOMED Code(s): 67742690 Code(s): E87.6 - HYPOKALEMIA Status: Acute Current Visit: Yes (3) Hyponatremia SNOMED Code(s): 02863065 Code(s): E87.1 - HYPO-OSMOLALITY AND HYPONATREMIA Status: Acute Current Visit: Yes (4) Hypomagnesemia SNOMED Code(s): 971429187 Code(s): E83.42 - HYPOMAGNESEMIA Status: Acute Current Visit: Yes (5) Essential hypertension SNOMED Code(s): 73046992 Code(s): I10 - ESSENTIAL (PRIMARY) HYPERTENSION Status: Chronic Current Visit: Yes - Problem List Review Problem List Initiated/Reviewed/Updated: Yes - My Orders Last 24 Hours: My Active Orders 01/08/20 15:56 Resuscitation Status Routine 01/08/20 16:28 Acetaminophen [TylenoL] 650 mg PO Q4H PRN Docusate Sodium/Sennosides [Senna Plus] 1 tab PO BID PRN HYDROmorphone [Dilaudid] 0.5 mg IVPUSH Q2H PRN LORazepam [Ativan] 0.5 mg IVPUSH Q4H PRN Magnesium Hydroxide [Milk of Magnesia] 30 ml PO Q12H PRN Melatonin 9 mg PO BEDTIME PRN Ondansetron [Zofran ODT] 4 mg PO Q6H PRN Ondansetron [Zofran] 4 mg IV Q6H PRN Sodium Chloride 0.9% [Normal Saline] 1,000 ml IV ASDIRECTED oxyCODONE 5 - 10 mg PO Q4H PRN 01/08/20 16:28 Patient Status [ADT] Routine Elevate Extremity [RC] QID Intake and Output [RC] QSHIFT Notify Provider Vital Signs [RC] ASDIRECTED Oxygen Therapy [RC] PRN Up With Assistance [RC] ASDIRECTED VTE/DVT Education [RC] Per Unit Routine Vital Signs [RC] Q4H 01/08/20 Dinner 2 Gram Sodium Diet [DIET] 01/08/20 18:00 Vancomycin 1.25 gm Sodium Chloride 0.9% [Normal Saline] 250 ml IV Q12H 01/08/20 21:00 Dabigatran [Pradaxa] 150 mg PO BID Lactobacillus Rhamnosus GG [Culturelle] 1 cap PO BID 01/09/20 02:00 cefTRIAXone [Rocephin] 1 gm Sodium Chloride 0.9% [Normal Saline] 50 ml IV Q12H 01/09/20 07:00 PT Evaluation and Treatment [CONS] Routine 01/09/20 09:00 Diltiazem [Cardizem CD] 120 mg PO DAILY Losartan [Cozaar] 25 mg PO DAILY Spironolactone [Aldactone] 25 mg PO DAILY aMILoride [Midamor] 5 mg PO DAILY hydroCHLOROthiazide 25 mg PO DAILY 01/09/20 10:22 Discontinue Telemetry Monitoring [Cardiac Monitoring Discontinue] [RC] Click to Edit 01/09/20 10:30 Sodium Chloride 0.9% [Normal Saline] 1,000 ml IV ASDIRECTED 01/09/20 15:00 POTASSIUM,K [CHEM] Routine 01/10/20 05:00 BASIC METABOLIC PANEL,BMP [CHEM] Timed CBC W/O DIFF,HEMOGRAM [HEME] Timed (1) - Plan Plan:: ASSESSMENT AND PLAN - Cellulitis of the left lower extremity including foot-clinically improving and white blood cell count is trending down. No significant fevers. Tolerating current antibiotics. Still having difficulty bearing weight because of the severity of the pain. -Antibiotic coverage with ceftriaxone and vancomycin -Continue gentle IV fluids -Symptomatic management of pain -Follow-up cultures -Physical therapy to help with weakness Profound hypokalemia-potassium level improving with supplementation but still quite low. -20 mEq given earlier this morning -40 mEq by mouth x1 -Recheck this afternoon and again in the morning Hyponatremia-improving with fluids -IV fluids as above Hypomagnesemia-supplemented overnight Paroxysmal atrial fibrillation-currently in sinus rhythm. She is chronically anticoagulated. -Continue dabigatran Essential hypertension-blood pressure initially mildly elevated but acceptable at this time. Planning to continue her usual home medications. Maintenance issues - - DVT prophylaxis -dabigatran - GI prophylaxis -not indicated - Nutrition -regular Disposition -I would anticipate discharge home after the hospital stay Primary care physician -Dr. Mei Kent M.D.
[2020-01-09] MEDS ORDERED: Sodium Chloride 0.9% 1,000 ML IV SCH (10:30)
[2020-01-10] MEDS: cefTRIAXone 1 GM in Sodium Chloride 0.9% 50 ML IV SCH ×2 (02:28→14:12)
[2020-01-10] MEDS: Spironolactone 25 MG Tab PO SCH (08:24)
[2020-01-10] MEDS: Diltiazem 120 MG Cap.CD PO SCH (08:24)
[2020-01-10] MEDS: Losartan 25 MG Tab PO SCH (08:25)
[2020-01-10] MEDS: Hydrochlorothiazide 25 MG Tab PO SCH (08:28)
[2020-01-10] MEDS: Lactobacillus Rhamnosus GG (Probiotic) Cap PO SCH ×2 (08:28→20:30)
[2020-01-10] MEDS: Potassium Chloride 20 MEQ Tab.ER PO SCH (08:29)
[2020-01-10] MEDS: aMILoride 5 MG Tab PO SCH (08:30)
[2020-01-10] MEDS ORDERED: Potassium Chloride 20 MEQ Tab.ER PO ONE (09:00)
[2020-01-10] MEDS: Magnesium Sulfate/Water 2 GM in Premix Bag 1 BAG IV SCH ×2 (10:23→15:22)
--- NOTE | 2020-01-10 11:32 | PCM.PN ---
- General Info Date of Service: 01/10/20 Subjective Update: There were no acute events overnight. Patient did have a low-grade temperature elevation in the middle of the night and a temp of 38 C this morning. She reports that she feels well and quite a bit better than yesterday. Still having some leg pain but it is dramatically improved. She does not think that the swelling or redness have improved much but the pain is decreased significantly. No nausea. Appetite improving. She was able to stand on her leg long enough to take a shower. White count is normal. Potassium is normal today. Functional Status: Reports: Pain Controlled, Tolerating Diet - Review of Systems General: Reports: Fever Cardiovascular: Reports: Edema Musculoskeletal: Reports: Leg Pain - Patient Data Vitals - Most Recent: Last Vital Signs Temp 36.8 C 01/10/20 11:18 Pulse 56 L 01/10/20 11:18 Resp 12 01/10/20 11:18 BP 132/65 01/10/20 11:18 Pulse Ox 98 01/10/20 11:18 Weight - Most Recent: 82.554 kg I&O - Last 24 Hours: Intake & Output 01/09/20 01/10/20 01/10/20 22:59 06:59 14:59 Intake Total 593 220 Balance 593 220 Lab Results Last 24 Hours: Laboratory Results - last 24 hr 01/09/20 01/10/20 01/10/20 Range/Units 15:00 05:43 05:43 WBC 9.7 (4.5-11.0) K/uL RBC 3.97 (3.30-5.50) M/uL Hgb 13.1 (12.0-15.0) g/dL Hct 39.5 (36.0-48.0) % MCV 100 H (80-98) fL MCH 33 H (27-31) pg MCHC 33 (32-36) % Plt Count 190 (150-400) K/uL Sodium 128 L (140-148) mmol/L Potassium 3.6 3.6 (3.6-5.2) mmol/L Chloride 95 L (100-108) mmol/L Carbon Dioxide 26 (21-32) mmol/L Anion Gap 10.6 (5.0-14.0) mmol/L BUN 11 (7-18) mg/dL Creatinine 0.7 (0.6-1.0) mg/dL Est Cr Clr Drug Dosing 69.21 mL/min Estimated GFR (MDRD) > 60 (>60) Glucose 97 (74-106) mg/dL Calcium 8.6 (8.5-10.1) mg/dL Magnesium 1.7 L (1.8-2.4) mg/dL Med Orders - Current: Current Medications Acetaminophen (Tylenol) 650 mg PO Q4H PRN PRN Reason: Pain (Mild 1-3)/fever Last Admin: 01/10/20 08:23 Dose: 650 mg Documented by: Amiloride HCl (Midamor) 5 mg PO DAILY [facility] Last Admin: 01/10/20 08:30 Dose: 5 mg Documented by: Dabigatran (Pradaxa) 150 mg PO BID [facility] Last Admin: 01/10/20 08:30 Dose: 150 mg Documented by: Diltiazem HCl (Cardizem Cd) 120 mg PO DAILY [facility] Last Admin: 01/10/20 08:24 Dose: 120 mg Documented by: Hydrochlorothiazide (Hydrochlorothiazide) 25 mg PO DAILY [facility] Last Admin: 01/10/20 08:28 Dose: 25 mg Documented by: Hydromorphone HCl (Dilaudid) 0.5 mg IVPUSH Q2H PRN PRN Reason: Pain (severe 7-10) Ceftriaxone Sodium 1 gm/ (Sodium Chloride) 50 mls @ 100 mls/hr IV Q12H [facility] Last Admin: 01/10/20 02:28 Dose: 100 mls/hr Documented by: Vancomycin HCl 1.25 gm/ Sodium (Chloride) 250 mls @ 150 mls/hr IV Q12H [facility] Last Admin: 01/10/20 05:39 Dose: 150 mls/hr Documented by: Sodium Chloride (Normal Saline) 1,000 mls @ 50 mls/hr IV ASDIRECTED [facility] Magnesium Sulfate 2 gm/ Premix 50 mls @ 25 mls/hr IV Q6H [facility] Stop: 01/10/20 17:59 Last Admin: 01/10/20 10:23 Dose: 25 mls/hr Documented by: Lactobacillus Rhamnosus (Culturelle) 1 cap PO BID [facility] Last Admin: 01/10/20 08:28 Dose: 1 cap Documented by: Lorazepam (Ativan) 0.5 mg IVPUSH Q4H PRN PRN Reason: Nausea/Vomiting Losartan Potassium (Cozaar) 25 mg PO DAILY [facility] Last Admin: 01/10/20 08:25 Dose: 25 mg Documented by: Magnesium Hydroxide (Milk Of Magnesia) 30 ml PO Q12H PRN PRN Reason: Constipation Melatonin (Melatonin) 9 mg PO BEDTIME PRN PRN Reason: Sleep Ondansetron HCl (Zofran) 4 mg IV Q6H PRN PRN Reason: Nausea/Vomiting Ondansetron HCl (Zofran Odt) 4 mg PO Q6H PRN PRN Reason: Nausea able to take PO Oxycodone HCl (Oxycodone) 5 - 10 mg PO Q4H PRN PRN Reason: Pain Potassium Chloride (Klor-Con M20) 20 meq PO DAILY [facility] Last Admin: 01/10/20 08:29 Dose: 20 meq Documented by: Senna/Docusate Sodium (Senna Plus) 1 tab PO BID PRN PRN Reason: Constipation Spironolactone (Aldactone) 25 mg PO DAILY [facility] Last Admin: 01/10/20 08:24 Dose: 25 mg Documented by: Discontinued Medications Ceftriaxone Sodium 1 gm/ (Sodium Chloride) 50 mls @ 100 mls/hr IV ONETIME ONE Stop: 01/08/20 13:59 Last Admin: 01/08/20 13:53 Dose: 100 mls/hr Documented by: Potassium Chloride 20 meq/Lidocaine HCl 2 ml/ Sodium Chloride 112 mls @ 56 mls/hr IV ONETIME ONE Stop: 01/08/20 16:29 Last Admin: 01/08/20 14:46 Dose: 56 mls/hr Documented by: Sodium Chloride (Normal Saline) 1,000 mls @ 100 mls/hr IV ASDIRECTED [facility] Last Admin: 01/09/20 04:03 Dose: 100 mls/hr Documented by: Potassium Chloride 20 meq/Lidocaine HCl 2 ml/ Sodium Chloride 112 mls @ 56 mls/hr IV ONETIME ONE Stop: 01/08/20 20:59 Last Admin: 01/08/20 18:00 Dose: 56 mls/hr Documented by: Magnesium Sulfate 2 gm/ Premix 50 mls @ 25 mls/hr IV Q6H [facility] Stop: 01/09/20 07:59 Last Admin: 01/09/20 05:37 Dose: 25 mls/hr Documented by: Potassium Chloride 20 meq/ (Premix) 100 mls @ 50 mls/hr IV ONETIME ONE Stop: 01/09/20 07:28 Last Admin: 01/09/20 05:49 Dose: 50 mls/hr Documented by: Potassium Chloride (Kcl 20 Meq In Water 100 Ml) Confirm Administered Dose 100 mls @ as directed .ROUTE .STK-MED ONE Stop: 01/09/20 05:43 Last Admin: 01/09/20 05:49 Dose: Not Given Documented by: Lidocaine HCl (Xylocaine-Mpf 1%) 2 ml INJECT ONETIME ONE Stop: 01/09/20 05:31 Last Admin: 01/09/20 05:49 Dose: 2 ml Documented by: Lidocaine HCl (Xylocaine-Mpf 1%) Confirm Administered Dose 5 ml .ROUTE .STK-MED ONE Stop: 01/09/20 05:43 Last Admin: 01/09/20 05:49 Dose: Not Given Documented by: Potassium Chloride (Klor-Con M20) 40 meq PO ONETIME ONE Stop: 01/08/20 17:46 Last Admin: 01/08/20 17:33 Dose: 40 meq Documented by: Potassium Chloride (Klor-Con M20) 40 meq PO ONETIME ONE Stop: 01/09/20 09:01 Last Admin: 01/09/20 09:50 Dose: 40 meq Documented by: Potassium Chloride (Klor-Con M20) 40 meq PO ONETIME ONE Stop: 01/09/20 18:41 Last Admin: 01/09/20 19:11 Dose: 40 meq Documented by: Potassium Chloride (Klor-Con M20) 20 meq PO ONETIME ONE Stop: 01/10/20 09:01 Last Admin: 01/10/20 10:22 Dose: 20 meq Documented by: - Exam Quality Assessment: No: Supplemental Oxygen General: Alert, Oriented, Cooperative, No Acute Distress Lungs: Normal Respiratory Effort Cardiovascular: Regular Rate, Regular Rhythm GI/Abdominal Exam: Soft, No Distention Extremities: Pedal Edema, Increased Warmth (mild left lower leg ) Skin: Warm, Dry, Rash (purpilish erythema with mild swelling left lower leg from below the knee to the ankle) Psy/Mental Status: Alert, Normal Affect Sepsis Event Note - Evaluation Sepsis Screening Result: No Definite Risk - Focused Exam Vital Signs: Vital Signs Temp Temp Pulse Pulse Pulse Resp BP 01/10/20 11:18 36.8 C 56 L 12 01/10/20 08:53 37.3 C 01/10/20 08:25 136/62 01/10/20 08:24 76 136/62 01/10/20 08:23 38.0 C 01/10/20 08:00 38.0 C 76 20 01/10/20 02:25 37.9 C 61 18 BP BP Pulse Ox 01/10/20 11:18 132/65 98 01/10/20 08:53 01/10/20 08:25 01/10/20 08:24 01/10/20 08:23 01/10/20 08:00 136/62 96 01/10/20 02:25 131/54 L 97 - Problem List & Annotations (1) Cellulitis of left lower extremity SNOMED Code(s): 290149977 Code(s): L03.116 - CELLULITIS OF LEFT LOWER LIMB Status: Acute Current Visit: Yes (2) Hypokalemia SNOMED Code(s): 93267941 Code(s): E87.6 - HYPOKALEMIA Status: Acute Current Visit: Yes (3) Hyponatremia SNOMED Code(s): 75750824 Code(s): E87.1 - HYPO-OSMOLALITY AND HYPONATREMIA Status: Acute Current Visit: Yes (4) Hypomagnesemia SNOMED Code(s): 819672396 Code(s): E83.42 - HYPOMAGNESEMIA Status: Acute Current Visit: Yes (5) Essential hypertension SNOMED Code(s): 20791704 Code(s): I10 - ESSENTIAL (PRIMARY) HYPERTENSION Status: Chronic Current Visit: Yes - Problem List Review Problem List Initiated/Reviewed/Updated: Yes - My Orders Last 24 Hours: My Active Orders 01/10/20 09:00 Potassium Chloride [Klor-Con M20] 20 meq PO DAILY 01/10/20 10:00 Magnesium Sulfate/Water [Magnesium Sulfate in Water Premix] 2 gm Premix Bag 1 bag IV Q6H 01/10/20 11:29 Convert IV to Saline Lock [OM.PC] Routine 01/10/20 21:00 Doxycycline [Vibramycin] 100 mg PO BID 01/11/20 05:00 BASIC METABOLIC PANEL,BMP [CHEM] Timed CBC W/O DIFF,HEMOGRAM [HEME] Timed (1) - Plan Plan:: ASSESSMENT AND PLAN - Cellulitis of the left lower extremity including foot-clinically improving and white blood cell count is trending down. Low-grade fever today but otherwise clinically improving. Pain much better today. -Continue ceftriaxone -Stop vancomycin -Start doxycycline -Saline lock IV -Symptomatic management of pain -Follow-up cultures -Physical therapy to help with weakness Profound hypokalemia-potassium level improving with supplementation but still low normal. -40 mEq by mouth x1 -Recheck in the morning Hyponatremia-still low but a little better since admission. -IV fluids as above Hypomagnesemia-planning to supplement again today. Paroxysmal atrial fibrillation-currently in sinus rhythm. She is chronically anticoagulated. -Continue dabigatran Essential hypertension-blood pressure stable. Maintenance issues - - DVT prophylaxis -dabigatran - GI prophylaxis -not indicated - Nutrition -regular Disposition -I would anticipate discharge home after the hospital stay Primary care physician -Dr. Mei Kent M.D.
[2020-01-10] MEDS: Doxycycline 100 MG Cap PO SCH (20:30)
[2020-01-11] MEDS: cefTRIAXone 1 GM in Sodium Chloride 0.9% 50 ML IV SCH (01:02)
[2020-01-11] MEDS: Diltiazem 120 MG Cap.CD PO SCH (09:08)
[2020-01-11] MEDS: Lactobacillus Rhamnosus GG (Probiotic) Cap PO SCH (09:08)
[2020-01-11] MEDS: Doxycycline 100 MG Cap PO SCH (09:09)
[2020-01-11] MEDS: Losartan 25 MG Tab PO SCH (09:09)
[2020-01-11] MEDS: Potassium Chloride 20 MEQ Tab.ER PO SCH (09:09)
[2020-01-11] MEDS: Hydrochlorothiazide 25 MG Tab PO SCH (09:10)
[2020-01-11] MEDS: Spironolactone 25 MG Tab PO SCH (09:10)
[2020-01-11] MEDS: aMILoride 5 MG Tab PO SCH (09:13)
--- NOTE | 2020-01-11 10:08 | PCM.DCSUM1 ---
Discharge Summary - Hospital Course Brief History: 69-year-old female with history of essential hypertension who presented with weakness and increasing pain, redness and swelling of the left leg. She was admitted for management of cellulitis of the left lower extremity and profound hypokalemia. Diagnosis: Stroke: No - Discharge Data Discharge Date: 01/11/20 Discharge Disposition: Home, Self-Care 01 Condition: Good - Referral to Home Health Primary Care Physician: PCP None - Discharge Diagnosis/Problem(s) (1) Cellulitis of left lower extremity SNOMED Code(s): 268381193 ICD Code: L03.116 - CELLULITIS OF LEFT LOWER LIMB Status: Acute Current Visit: Yes (2) Hypokalemia SNOMED Code(s): 58807213 ICD Code: E87.6 - HYPOKALEMIA Status: Acute Current Visit: Yes (3) Hyponatremia SNOMED Code(s): 12153252 ICD Code: E87.1 - HYPO-OSMOLALITY AND HYPONATREMIA Status: Acute Current Visit: Yes (4) Hypomagnesemia SNOMED Code(s): 417574436 ICD Code: E83.42 - HYPOMAGNESEMIA Status: Acute Current Visit: Yes (5) Essential hypertension SNOMED Code(s): 96076829 ICD Code: I10 - ESSENTIAL (PRIMARY) HYPERTENSION Status: Chronic Current Visit: Yes - Patient Summary/Data Consults: Consultations 01/09/20 07:00 PT Evaluation and Treatment [CONS] Routine Please Evaluate and Treat. PT Reason for Consult: Strengthening This query below is only for informational purposes and is not editable. Hospital Course: Mercy presented to the emergency room with progressive weakness as well as increasing redness, warmth and swelling of her left lower extremity. Work-up in the emergency room raised concern for cellulitis of the left lower extremity as well as profound hypokalemia and hypomagnesemia. Lower extremity venous ultrasound was negative. She was started on vancomycin and ceftriaxone. She was admitted to the hospital for further management with IV antibiotics given the severity of the infection though there was no evidence for sepsis. She was also extremely weak and could not bear any weight because of both strength and the significant pain in her leg. Overnight following admission there were no acute issues. She did have some low-grade fevers during the course of the hospital stay but overall made slow and steady improvement with the infection. Her pain improved within the first 24 hours and she was able to bear some weight and then further over the next 24 and 48 hours. She is now able to bear weight with a walker and can get to the bathroom and back gets around pretty well. Her strength has improved dramatically. The purple/red discoloration of the left lower leg persists but the warmth and swelling have improved dramatically. We never did determine the causative bacteria but have transitioned her to doxycycline which has led to continued improvement. My plan is for her to go home with 1 more week of doxycycline. We did review the potential side effects. She will also be elevating and wrapping her leg. Also noted in the emergency room was profound hypokalemia with a potassium of 2.6. Magnesium was also low at 1.5. These were supplemented over the course of the hospital stay with steady improvement and normalization of the laboratory values. Initially her blood pressure was moderately elevated but after some hydration and getting her back on her usual medications her blood pressures have normalized and we did not make any changes to her home regimen. - Patient Instructions Diet: Heart Healthy Diet Activity: As Tolerated Showering/Bathing: May Shower Notify Provider of: Fever, Increased Pain, Swelling and Redness Other/Special Instructions: 1. You were in the hospital for management of left lower extremity cellulitis. We did not determine a causative bacteria but your condition is improving with antibiotic therapy. I do recommend ongoing antibiotic therapy with doxycycline. Please take 100 mg twice daily with food for 15 more doses. Your first dose outside of the hospital will be due tonight. This medication can make your skin more sensitive to sunlight so you should cover exposed skin with clothing or high SPF sunscreen while you are on the antibiotic. Wrapping your left leg with Daniel wraps or with type fitting socks that go up to your knee can help reduce swelling. You may take these off at night. You should also elevate your left leg 4 times daily. 2. Continue your usual home medications as previously prescribed. 3. You should have your potassium level rechecked at your follow-up visit. You may need to increase your potassium supplement. 4. Seek medical attention if you have fever greater than 101, an increase in the pain or swelling of your left leg or if the redness extends above the knee. - Discharge Plan *PRESCRIPTION DRUG MONITORING PROGRAM REVIEWED*: Not Applicable *COPY OF PRESCRIPTION DRUG MONITORING REPORT IN PATIENT PASHA: Not Applicable Prescriptions/Med Rec: Doxycycline Hyclate 100 mg PO BID #15 capsule Home Medications: Home Meds Losartan [Cozaar] 25 mg PO DAILY 01/22/18 [History] Potassium Chloride 20 meq PO DAILY 01/22/18 [History] aMILoride [Midamor] 5 mg PO DAILY 01/22/18 [History] hydroCHLOROthiazide [Hydrochlorothiazide] 25 mg PO DAILY 01/22/18 [History] Dabigatran Etexilate Mesylate [Pradaxa] 150 mg PO BID 01/08/20 [History] Magnesium Chloride [Slow-Mag] 1 tab PO ASDIRECTED 01/08/20 [History] Spironolactone [Aldactone] 25 mg PO DAILY 01/08/20 [History] dilTIAZem HCL [Dilt-XR] 120 mg PO DAILY 01/08/20 [History] Doxycycline Hyclate 100 mg PO BID #15 capsule 01/11/20 [Rx] Oxygen Therapy Mode: Room Air Patient Handouts: Cellulitis, Adult, Doxycycline tablets or capsules Referrals: Mei Goel MD [Ordering Only Provider] - 01/16/20 1:30 pm (Please note your appointment at [facility]. Please arrive 15 minutes early to register for your apoointment.) - Discharge Summary/Plan Comment DC Time >30 min.: Yes (35-dietary discussion, infection/swelling management) - Patient Data Vitals - Most Recent: Last Vital Signs Temp 37.5 C 01/11/20 07:28 Pulse 63 01/11/20 09:08 Resp 16 01/11/20 07:28 BP 156/73 H 01/11/20 09:09 Pulse Ox 97 01/11/20 07:28 Weight - Most Recent: 82.554 kg I&O - Last 24 hours: Intake & Output 01/10/20 01/11/20 01/11/20 22:59 06:59 14:59 Intake Total 1205 250 Output Total 400 Balance 805 250 Lab Results - Last 24 hrs: Laboratory Results - last 24 hr 01/11/20 01/11/20 Range/Units 04:10 04:10 WBC 9.6 (4.5-11.0) K/uL RBC 4.12 (3.30-5.50) M/uL Hgb 13.5 (12.0-15.0) g/dL Hct 40.9 (36.0-48.0) % MCV 99 H (80-98) fL MCH 33 H (27-31) pg MCHC 33 (32-36) % Plt Count 229 (150-400) K/uL Sodium 131 L (140-148) mmol/L Potassium 3.9 (3.6-5.2) mmol/L Chloride 96 L (100-108) mmol/L Carbon Dioxide 28 (21-32) mmol/L Anion Gap 10.9 (5.0-14.0) mmol/L BUN 13 (7-18) mg/dL Creatinine 1.0 (0.6-1.0) mg/dL Est Cr Clr Drug Dosing 48.45 mL/min Estimated GFR (MDRD) 55 L (>60) Glucose 104 (74-106) mg/dL Calcium 9.1 (8.5-10.1) mg/dL Med Orders - Current: Current Medications Acetaminophen (Tylenol) 650 mg PO Q4H PRN PRN Reason: Pain (Mild 1-3)/fever Last Admin: 01/10/20 08:23 Dose: 650 mg Documented by: Amiloride HCl (Midamor) 5 mg PO DAILY [facility] Last Admin: 01/11/20 09:13 Dose: 5 mg Documented by: Dabigatran (Pradaxa) 150 mg PO BID [facility] Last Admin: 01/11/20 09:09 Dose: 150 mg Documented by: Diltiazem HCl (Cardizem Cd) 120 mg PO DAILY [facility] Last Admin: 01/11/20 09:08 Dose: 120 mg Documented by: Doxycycline Hyclate (Vibramycin) 100 mg PO BID [facility] Last Admin: 01/11/20 09:09 Dose: 100 mg Documented by: Hydrochlorothiazide (Hydrochlorothiazide) 25 mg PO DAILY [facility] Last Admin: 01/11/20 09:10 Dose: 25 mg Documented by: Hydromorphone HCl (Dilaudid) 0.5 mg IVPUSH Q2H PRN PRN Reason: Pain (severe 7-10) Ceftriaxone Sodium 1 gm/ (Sodium Chloride) 50 mls @ 100 mls/hr IV Q12H [facility] Last Admin: 01/11/20 01:02 Dose: 100 mls/hr Documented by: Lactobacillus Rhamnosus (Culturelle) 1 cap PO BID [facility] Last Admin: 01/11/20 09:08 Dose: 1 cap Documented by: Lorazepam (Ativan) 0.5 mg IVPUSH Q4H PRN PRN Reason: Nausea/Vomiting Losartan Potassium (Cozaar) 25 mg PO DAILY [facility] Last Admin: 01/11/20 09:09 Dose: 25 mg Documented by: Magnesium Hydroxide (Milk Of Magnesia) 30 ml PO Q12H PRN PRN Reason: Constipation Melatonin (Melatonin) 9 mg PO BEDTIME PRN PRN Reason: Sleep Ondansetron HCl (Zofran) 4 mg IV Q6H PRN PRN Reason: Nausea/Vomiting Ondansetron HCl (Zofran Odt) 4 mg PO Q6H PRN PRN Reason: Nausea able to take PO Oxycodone HCl (Oxycodone) 5 - 10 mg PO Q4H PRN PRN Reason: Pain Potassium Chloride (Klor-Con M20) 20 meq PO DAILY [facility] Last Admin: 01/11/20 09:09 Dose: 20 meq Documented by: Senna/Docusate Sodium (Senna Plus) 1 tab PO BID PRN PRN Reason: Constipation Spironolactone (Aldactone) 25 mg PO DAILY [facility] Last Admin: 01/11/20 09:10 Dose: 25 mg Documented by: Discontinued Medications Ceftriaxone Sodium 1 gm/ (Sodium Chloride) 50 mls @ 100 mls/hr IV ONETIME ONE Stop: 01/08/20 13:59 Last Admin: 01/08/20 13:53 Dose: 100 mls/hr Documented by: Potassium Chloride 20 meq/Lidocaine HCl 2 ml/ Sodium Chloride 112 mls @ 56 mls/hr IV ONETIME ONE Stop: 01/08/20 16:29 Last Admin: 01/08/20 14:46 Dose: 56 mls/hr Documented by: Sodium Chloride (Normal Saline) 1,000 mls @ 100 mls/hr IV ASDIRECTED [facility] Last Admin: 01/09/20 04:03 Dose: 100 mls/hr Documented by: Potassium Chloride 20 meq/Lidocaine HCl 2 ml/ Sodium Chloride 112 mls @ 56 mls/hr IV ONETIME ONE Stop: 01/08/20 20:59 Last Admin: 01/08/20 18:00 Dose: 56 mls/hr Documented by: Magnesium Sulfate 2 gm/ Premix 50 mls @ 25 mls/hr IV Q6H [facility] Stop: 01/09/20 07:59 Last Admin: 01/09/20 05:37 Dose: 25 mls/hr Documented by: Vancomycin HCl 1.25 gm/ Sodium (Chloride) 250 mls @ 150 mls/hr IV Q12H [facility] Last Admin: 01/10/20 05:39 Dose: 150 mls/hr Documented by: Potassium Chloride 20 meq/ (Premix) 100 mls @ 50 mls/hr IV ONETIME ONE Stop: 01/09/20 07:28 Last Admin: 01/09/20 05:49 Dose: 50 mls/hr Documented by: Potassium Chloride (Kcl 20 Meq In Water 100 Ml) Confirm Administered Dose 100 mls @ as directed .ROUTE .STK-MED ONE Stop: 01/09/20 05:43 Last Admin: 01/09/20 05:49 Dose: Not Given Documented by: Sodium Chloride (Normal Saline) 1,000 mls @ 50 mls/hr IV ASDIRECTED [facility] Magnesium Sulfate 2 gm/ Premix 50 mls @ 25 mls/hr IV Q6H [facility] Stop: 01/10/20 17:59 Last Admin: 01/10/20 15:22 Dose: 25 mls/hr Documented by: Lidocaine HCl (Xylocaine-Mpf 1%) 2 ml INJECT ONETIME ONE Stop: 01/09/20 05:31 Last Admin: 01/09/20 05:49 Dose: 2 ml Documented by: Lidocaine HCl (Xylocaine-Mpf 1%) Confirm Administered Dose 5 ml .ROUTE .STK-MED ONE Stop: 01/09/20 05:43 Last Admin: 01/09/20 05:49 Dose: Not Given Documented by: Potassium Chloride (Klor-Con M20) 40 meq PO ONETIME ONE Stop: 01/08/20 17:46 Last Admin: 01/08/20 17:33 Dose: 40 meq Documented by: Potassium Chloride (Klor-Con M20) 40 meq PO ONETIME ONE Stop: 01/09/20 09:01 Last Admin: 01/09/20 09:50 Dose: 40 meq Documented by: Potassium Chloride (Klor-Con M20) 40 meq PO ONETIME ONE Stop: 01/09/20 18:41 Last Admin: 01/09/20 19:11 Dose: 40 meq Documented by: Potassium Chloride (Klor-Con M20) 20 meq PO ONETIME ONE Stop: 01/10/20 09:01 Last Admin: 01/10/20 10:22 Dose: 20 meq Documented by: - Exam Quality Assessment: Denies: Supplemental Oxygen General: Reports: Alert, Oriented, Cooperative, No Acute Distress Lungs: Reports: Normal Respiratory Effort Cardiovascular: Reports: Regular Rate, Regular Rhythm GI/Abdominal Exam: Soft, No Distention Extremities: Pedal Edema (Mild swelling left leg below the knee). No: Increased Warmth Skin: Reports: Rash (Purpleish discoloration from just below the knee to the ankle on the left side. This is circumferential) Psy/Mental Status: Reports: Alert, Normal Affect
== END 2020-01-11 11:30 | disposition home or self-care (01) | DRG 603 ==
LOC: JP.ED 12:15 → JP.ICU 15:54 → JP.MS 01-09 15:07
PROVIDERS: ADMIT Internal Medicine; ATTEND Internal Medicine
DX: H54.7 Unspecified visual loss (principal); H91.90 Unspecified hearing loss, unspecified ear; J30.9 Allergic rhinitis, unspecified; L03.116 Cellulitis of left lower limb; E87.1 Hypo-osmolality and hyponatremia; E87.6 Hypokalemia; I10 Essential (primary) hypertension; M79.7 Fibromyalgia; E83.42 Hypomagnesemia; K21.9 Gastro-esophageal reflux disease without esophagitis; L40.9 Psoriasis, unspecified; Z90.49 Acquired absence of other specified parts of digestive tract; Z98.890 Other specified postprocedural states; E66.9 Obesity, unspecified; M19.90 Unspecified osteoarthritis, unspecified site; M54.9 Dorsalgia, unspecified; Z88.6 Allergy status to analgesic agent; I48.0 Paroxysmal atrial fibrillation; G89.29 Other chronic pain; Z79.01 Long term (current) use of anticoagulants; Z88.8 Allergy status to other drugs, medicaments and biological substances; Z88.5 Allergy status to narcotic agent; Z91.040 Latex allergy status; Z88.2 Allergy status to sulfonamides; Z79.899 Other long term (current) drug therapy; Z68.30 Body mass index [BMI] 30.0-30.9, adult
CPT/HCPCS: 36415; 80053; 83605; 83735; 85025; 86140; 93971 ×2; 96365; 96367; 99285; J0696; J2001; J3480; J7050 ×2; 80048; 84132; 85027; 97110-GP; 97161-GP; 97530-GP; 99222-AI; 99232; 99239; 99284; A9270-GY; J3370; J3475; J7030